=== PATIENT | female | born 1980 | race Caucasian/White ===

== ENCOUNTER 2017-02-05 15:23 | Emergency (ER) | payer BC ==
[~2017-02-05] VITALS: Ht 170.2 cm; Wt 127.0 kg
[~2017-02-05 15:23] MED LIST: BACTROBAN2% TP; CIPRO 500MG TA500 MG PO; CIPROFLOXACIN500 MG PO; CITALOPRAM20 MG PO; CLONAZEPAM 1MG T1 MG PO; DOXYCYCLINE MO100 MG PO; FLEXERIL10 MG PO; HYDROCHLOROTH12.5 M1 PO; IBUPROFEN600 MG PO; KEFLEX 500MG.500 MG PO; LORTAB 5/500 501 TAB PO; MEDROL 4MG. DOSE4 MG PO; MOBIC15 MG PO; MOTRIN600 MG PO; NAPROSYN 500MG500 MG PO; NAPROXEN SODIU500 MG PO; NAPROXEN375 MG PO; NITROFURANTOIN100 M4 PO; NOMEDS; NORCO 325 MG-51 TAB PO; OMNICEF 300 MG300 MG PO; PHENERGAN 25MG.25 M1 PO; PHENERGAN 25MG.25 MG PR; PHENERGAN W/CO473 ML PO; PROPRANOLOL60 MG PO; PROTONIX 40MG T40 MG PO; ROBAXIN500 MG PO; SEPTRA DS 800 M1 TAB PO; TYLENOL325 MG PO; ULTRAM 50 MG TA50 MG PO; VERMOX100 MG PO; VICODIN 5/500 T1 TAB PO; VOLTAREN75 MG PO; ZOFRAN4 MG PO
--- OUTSIDE RECORDS SUMMARY | 2017-02-05 16:00 | External Medical Summary Rpt ---
Author Author , Organization [employer] Address Unknown Phone Unavailable Purpose Continuity of Care Document - 08-30-2016 through 2016 Problems Code Diagnosis DOS Provider Status K21.9 GASTRO-ESOP HAGEAL REFLUX DISEASE WITHOUT ESOPHAGITIS Results Labs Lab Lab Date Result Refere Interp Status Commen Order Detail nces retati t Range on CHLAMYDIA AND GONORRHEA TESTING (10-14-2016 10:15) Chlamyd POSITIV complet ia 017 E ed trachom 10:15 atis rRNA [Presen ce] in Unspeci fied specime n by Probe & target amplifi cation method Neisser NEGATIV complet ia 017 E ed gonorrh 10:15 oeae rRNA [Presen ce] in Unspeci fied specime n by Probe & target amplifi cation method CHLAMYDIA AND GONORRHEA TESTING (10-14-2016 10:15) COLLECT AH/GENP complet OR 017 ROBE ed 10:15 ETHNICI WHITE, complet TY 017 NON-HIS ed 10:15 PANIC KIT complet EXPIRAT 017 017 ed ION 10:15 DATE SYMPTOM YES complet S 017 ed 10:15 REASON VOLUNTE complet FOR 017 ER/MEDI ed REQUEST 10:15 BELINDA PROBLEM SPECIME URINE complet N 017 ed SOURCE 10:15 PREGNAN NO complet T 017 ed 10:15 CHART N./A complet NUMBER 017 ed 10:15 Chlamyd Pending complet ia 017 ed trachom 10:15 atis rRNA [Presen ce] in Unspeci fied specime n by Probe & target amplifi cation method Neisser Pending complet ia 017 ed gonorrh 10:15 oeae rRNA [Presen ce] in Unspeci fied specime n by Probe & target amplifi cation method Treponema pallidum IgG Ab [Presence] in Serum by Immunoassay (08-30-2016 10:00) Trepone NON-RADHA complet ma 016 CTIVE ed pallidu 10:00 m IgG Ab [Presen ce] in Serum by Immunoa ssay CHLAMYDIA AND GONORRHEA TESTING (08-30-2016 10:00) Chlamyd POSITIV complet ia 016 E ed trachom 10:00 atis rRNA [Presen ce] in Unspeci fied specime n by Probe & target amplifi cation method Neisser NEGATIV complet ia 016 E ed gonorrh 10:00 oeae rRNA [Presen ce] in Unspeci fied specime n by Probe & target amplifi cation method Treponema pallidum IgG Ab [Presence] in Serum by Immunoassay (08-30-2016 10:00) COLLECT AH/RTT complet OR 016 ed 10:00 ETHNICI WHITE/N complet TY 016 ON-HISP ed 10:00 ANIC PURPOSE DIAGNOS complet OF 016 TIC ed EXAM 10:00 SPECIME BLOOD complet N 016 ed SOURCE 10:00 CHART N/A complet NUMBER 016 ed 10:00 Trepone Pending complet ma 016 ed pallidu 10:00 m IgG Ab [Presen ce] in Serum by Immunoa ssay CHLAMYDIA AND GONORRHEA TESTING (08-30-2016 10:00) COLLECT AH/GENP complet OR 016 ROBE ed 10:00 ETHNICI WHITE, complet TY 016 NON-HIS ed 10:00 PANIC KIT complet EXPIRAT 016 016 ed ION 10:00 DATE SYMPTOM NO complet S 016 ed 10:00 REASON VOLUNTE complet FOR 016 ER/MEDI ed REQUEST 10:00 BELINDA PROBLEM SPECIME URINE complet N 016 ed SOURCE 10:00 PREGNAN NO complet T 016 ed 10:00 CHART N/A complet NUMBER 016 ed 10:00 Chlamyd Pending complet ia 016 ed trachom 10:00 atis rRNA [Presen ce] in Unspeci fied specime n by Probe & target amplifi cation method Neisser Pending complet ia 016 ed gonorrh 10:00 oeae rRNA [Presen ce] in Unspeci fied specime n by Probe & target amplifi cation method
--- OUTSIDE RECORDS SUMMARY | 2017-02-05 16:00 | External Medical Summary Rpt ---
Author Author [employer] Organization [employer] Address Unknown Phone Unavailable Purpose Continuity of Care Document - through 2016
--- NOTE | 2017-02-05 16:01 | Emergency Room Report ---
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 N Clinical Suspician of Infection? N Mental Status: 1 - Regular (Normal Baseline) Sepsis Risk:Possible Sepsis Risk Have you (or family members/close friends) recently traveled outside the [place]? N If Yes, where/when: Have you had exposure to infectious disease within the past month? TB? Other? Specify: Comment The patient was using a slip and slide and injured her RIGHT ankle, hearing a loud pop. She now has severe pain in the distal one fourth of her lower leg and in her ankle. She is not able to bear weight on the RIGHT lower extremity. She has a prior history of cerebral palsy and LEFT ankle surgery and walks with a severe limp normally, very limited use of her LEFT lower extremity. She denies any other injury. No numbness. ALLERGIES Coded Allergies: No Known Allergies (05/12/16) History Medical History General CAD? No Angina: No ND: No Hypertension? Yes Hyperlipidemia? No CHF? No DVT? No PE? No COPD? No Asthma? No Anemia? No GERD? Yes Gastric ulcers? No GI Bleed? No Hernia? No Thyroid Problems? No Hypothyroidism? No CVA? No Seizures? Yes Diabetes? No Renal Insuffiency? No End Stage Renal Disease? No UTI? No Stones? No BPH? No GB Disease: Yes Nephritic Syndrome? No Asplenia? No Hepatitis? No Sickle Cell Disease? No Arthritis? No Migraines? No Cataracts? No Glaucoma? No MRSA? Yes HIV? No TB? No Anxiety? No Depression? No Cancer? No Immunization Hx DT/Tetanus > 10 YRS Flu REFUSES Pneumonia REFUSES Surgical Hx Previous Surgery?Y WISDOM TEETH EXTRACTION , 2002 SURGERY FOR CEREBRAL PALS C SECTION. 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 Family History Family Hx Diabetes Yes CAD No Hypertension Yes Hyperlipidemia Yes Cancer Yes TB No Social History Smoking Hx Smoker: Former Smoker Tobacco: Yes Type Cigarettes Packs/day < 1 Pack Alcohol Alcohol: No Review of Systems All Other Systems Reviewed and Negative Musculoskeletal see HPI, joint pain Psychiatric/Neurological denies numbness, denies weakness Physical Exam Vital Signs Vital Signs Date Time Temp Pulse Resp B/P Pulse O2 O2 Flow FiO2 Ox Delivery Rate 02/05 1627 108 26 240/141 97 02/05 1556 26 02/05 1527 98.7 106 22 220/100 97 General Appearance moderate distress, high BMI Respiratory Status No: respiratory distress. Cardiovascular regular rate/rhythm, normal peripheral pulses Extremities moderate RIGHT ankle edema. No visible deformity. Skin intact., tenderness diffusely RIGHT ankle and distal one fourth of the lower leg. No tenderness of the knee or proximal fibula. No tenderness of distal foot., normal pulses, capillary refill, sensation, warmth, movement of toes. Neurologic alert, no motor/sensory deficits Medical Decision Making LABS/Meds/Orders Pt receiving controlled substance in ED? Yes Pedrito was queried for this patient? No Reason not queried - emergent pt cond=no time Results/Orders Current Medication Orders Sig/Debra Start time Last Medication Dose Route Stop Time Status Admin Hydromorphone HCl 2 MG ONCE ONE 02/05 1615 DC 02/05 IM 02/05 1616 1556 Ondansetron HCl 4 MG ONCE ONE 02/05 1615 DC 02/05 IM 02/05 1616 1556 Ondansetron HCl 0 .STK-MED ONE 02/05 1604 DC .ROUTE Hydromorphone HCl 0 .STK-MED ONE 02/05 1603 DC .ROUTE XRAY/CT/US XRAY/CT/US XRAY ankle Comment X-ray interpreted by Thang Waldrop M.D.: Trimalleolar fracture. Mild subluxation laterally. Progress - 3:45 PM: Case discussed with Dr. Miranda who prefers a posterior and stirrup splint, wheelchair, and follow up in the office tomorrow afternoon. 4:05 PM: Dr. Miranda present in the emergency department. Procedures Orthopedic/Inj/Splint Progress Splint Application Performed by: THANG WALDROP Consent: Verbal consent obtained. Risks and benefits: risks, benefits and alternatives were discussed Consent given by: patient Patient identity confirmed: verbally with patient Splinting material: Orthoglass + JACKY wrap Type of splint: Short leg posterior and stirrup Location: RIGHT ankle Patient tolerance: Patient tolerated the procedure well with no immediate complications Neurovascular status intact with good sensation, capillary refill and movement before and after splint applied. Departure Departure Disposition DC Home or Self Care(routine) Clinical Impression Primary Impression: Trimalleolar fracture of ankle, closed Qualifiers: Encounter type: initial encounter Laterality: right Qualified Code: S82.851A - Displaced trimalleolar fracture of right lower leg, initial encounter for closed fracture Condition STABLE Referrals Viviane OLIVER,Mukul (Family) Patient Instructions DI for Ankle Fracture, How to Take Care of Your Splint Additional Instructions Ice and elevate her RIGHT ankle. Follow-up with Dr. Miranda in the office as instructed. Do not bear weight on your RIGHT leg. Additional instructions for FRACTURED (BROKEN) BONE: See Dr. Perdomo as soon as possible for further evaluation. Treat your splint like you would a cast: Do not get it wet (cover with a plastic bag while bathing or showering). If the splint feels too tight, you may loosen the jacky wrap covering it, but do not remove the splint. Return to an emergency department immediately if you have uncontrollable pain, loss of feeling or inability to move your injured extremity. Prescriptions Current Visit Scripts OXYCODONE HCL/ACETAMINOPHEN (Percocet 5-325 MG Tablet) 1 TAB PO Q6HP PRN pain #20 TAB ED Critical Care Critical Care No at [id number]
--- OUTSIDE RECORDS SUMMARY | 2017-02-05 16:01 | External Medical Summary Rpt ---
Author Author MAYKEL Garcia, [employer] Organization [employer] Address Unknown Phone Unavailable Results CHLAMYDIA AND GONORRHEA TESTING Observa Value Referen Units Interpr Notes Date tion ce etation Range COLLECT AH/GENP No No No No Oct 14 OR ROBE informa informa informa informa 2017 tion in tion in tion in tion in 10:15 source source source source AM data data data data ETHNICI WHITE, No No No No Oct 14 TY NON-HIS informa informa informa informa 2017 PANIC tion in tion in tion in tion in 10:15 source source source source AM data data data data KIT 05-31-2 No No No No Oct 14 EXPIRAT 017 informa informa informa informa 2017 ION tion in tion in tion in tion in 10:15 DATE source source source source AM data data data data SYMPTOM YES No No No No Oct 14 S informa informa informa informa 2017 tion in tion in tion in tion in 10:15 source source source source AM data data data data REASON VOLUNTE No No No No Oct 14 FOR ER/MEDI informa informa informa informa 2017 REQUEST BELINDA tion in tion in tion in tion in 10:15 PROBLEM source source source source AM data data data data SPECIME URINE No No No No Oct 14 N informa informa informa informa 2017 SOURCE tion in tion in tion in tion in 10:15 source source source source AM data data data data PREGNAN NO No No No No Oct 14 T informa informa informa informa 2017 tion in tion in tion in tion in 10:15 source source source source AM data data data data CHART N./A No No No No Oct 14 NUMBER informa informa informa informa 2017 tion in tion in tion in tion in 10:15 source source source source AM data data data data Chlamyd POSITIV No No No NEGATIV Oct 14 ia E informa informa informa E 2017 trachom tion in tion in tion in RESULT= 10:15 atis source source source WITHIN AM rRNA data data data NORMAL [Presen ce] in LIMITSP Unspeci OSITIVE fied specime RESULT= n by Probe & ABNORMA target LEQUIVO BELINDA amplifi RESULT= cation method INDETER MINATEU NSATISF ACTORY RESULT= INVALID Neisser NEGATIV No No No NEGATIV Oct 14 ia E informa informa informa E 2017 gonorrh tion in tion in tion in RESULT= 10:15 oeae source source source WITHIN AM rRNA data data data NORMAL [Presen ce] in LIMITSP Unspeci OSITIVE fied specime RESULT= n by Probe & ABNORMA target LEQUIVO BELINDA amplifi RESULT= cation method INDETER MINATEU NSATISF ACTORY RESULT= INVALID THE APTIMA COMBO 2 ASSAY IS NOT INTENDE D FOR THE EVALUAT ION OF SUSPECT EDSEXUA L ABUSE OR FOR OTHER MEDICO- LEGAL INDICAT IONS. FOR THOSE PATIENT S FORWHOM A FALSE POSITIV E RESULT MAY HAVE ADVERSE PSYCHO- SOCIAL IMPACT, [facility] NG.\.br \This report contain s patient informa tion that must be protect ed in accorda nce with the Health Insuran ce Portabi lity and Account ability Act. CHLAMYDIA AND GONORRHEA TESTING Observa Value Referen Units Interpr Notes Date tion ce etation Range COLLECT AH/GENP No No No No Oct 14 OR ROBE informa informa informa informa 2017 tion in tion in tion in tion in 10:15 source source source source AM data data data data ETHNICI WHITE, No No No No Oct 14 TY NON-HIS informa informa informa informa 2017 PANIC tion in tion in tion in tion in 10:15 source source source source AM data data data data KIT 05-31-2 No No No No Oct 14 EXPIRAT 017 informa informa informa informa 2017 ION tion in tion in tion in tion in 10:15 DATE source source source source AM data data data data SYMPTOM YES No No No No Oct 14 S informa informa informa informa 2017 tion in tion in tion in tion in 10:15 source source source source AM data data data data REASON VOLUNTE No No No No Oct 14 FOR ER/MEDI informa informa informa informa 2017 REQUEST BELINDA tion in tion in tion in tion in 10:15 PROBLEM source source source source AM data data data data SPECIME URINE No No No No Oct 14 N informa informa informa informa 2017 SOURCE tion in tion in tion in tion in 10:15 source source source source AM data data data data PREGNAN NO No No No No Oct 14 T informa informa informa informa 2017 tion in tion in tion in tion in 10:15 source source source source AM data data data data CHART N./A No No No No Oct 14 NUMBER informa informa informa informa 2017 tion in tion in tion in tion in 10:15 source source source source AM data data data data Chlamyd Pending No No No No Oct 14 ia informa informa informa informa 2017 trachom tion in tion in tion in tion in 10:15 atis source source source source AM rRNA data data data data [Presen ce] in Unspeci fied specime n by Probe & target amplifi cation method Neisser Pending No No No \.br\Oct 14 ia informa informa informa is 2017 gonorrh tion in tion in tion in report 10:15 oeae source source source contain AM rRNA data data data s [Presen patient ce] in Unspeci informa fied tion specime that n by must be Probe & target protect ed in amplifi accorda cation nce method with the Health Insuran ce Portabi lity and Account ability Act. Treponema pallidum IgG Ab [Presence] in Serum by Immunoassay Observa Value Referen Units Interpr Notes Date tion ce etation Range COLLECT AH/RTT No No No No Aug 30 OR informa informa informa informa 2016 tion in tion in tion in tion in 10:00 source source source source AM data data data data ETHNICI WHITE/N No No No No Aug 30 TY ON-HISP informa informa informa informa 2016 ANIC tion in tion in tion in tion in 10:00 source source source source AM data data data data PURPOSE DIAGNOS No No No No Aug 30 OF TIC informa informa informa informa 2016 EXAM tion in tion in tion in tion in 10:00 source source source source AM data data data data SPECIME BLOOD No No No No Aug 30 N informa informa informa informa 2016 SOURCE tion in tion in tion in tion in 10:00 source source source source AM data data data data CHART N/A No No No No Aug 30 NUMBER informa informa informa informa 2016 tion in tion in tion in tion in 10:00 source source source source AM data data data data Trepone NON-RADHA No No No METHOD Aug [address] informa informa informa OF 2016 pallidu tion in tion in tion in ANALYSI 10:00 m IgG source source source S: AM Ab data data data EIANORM [Presen AL ce] in RANGE: Serum NON-RADHA by CTIVE\. Immunoa br\This ssay report contain s patient informa tion that must be protect ed in accorda nce with the Health Insuran ce Portabi lity and Account ability Act. CHLAMYDIA AND GONORRHEA TESTING Observa Value Referen Units Interpr Notes Date tion ce etation Range COLLECT AH/GENP No No No No Aug 30 OR ROBE informa informa informa informa 2016 tion in tion in tion in tion in 10:00 source source source source AM data data data data ETHNICI WHITE, No No No No Aug 30 TY NON-HIS informa informa informa informa 2016 PANIC tion in tion in tion in tion in 10:00 source source source source AM data data data data KIT 12-31-2 No No No No Aug 30 EXPIRAT 016 informa informa informa informa 2016 ION tion in tion in tion in tion in 10:00 DATE source source source source AM data data data data SYMPTOM NO No No No No Aug 30 S informa informa informa informa 2016 tion in tion in tion in tion in 10:00 source source source source AM data data data data REASON VOLUNTE No No No No Aug 30 FOR ER/MEDI informa informa informa informa 2016 REQUEST BELINDA tion in tion in tion in tion in 10:00 PROBLEM source source source source AM data data data data SPECIME URINE No No No No Aug 30 N informa informa informa informa 2016 SOURCE tion in tion in tion in tion in 10:00 source source source source AM data data data data PREGNAN NO No No No No Aug 30 T informa informa informa informa 2016 tion in tion in tion in tion in 10:00 source source source source AM data data data data CHART N/A No No No No Aug 30 NUMBER informa informa informa informa 2016 tion in tion in tion in tion in 10:00 source source source source AM data data data data Chlamyd POSITIV No No No NEGATIV Aug 30 ia E informa informa informa E 2016 trachom tion in tion in tion in RESULT= 10:00 atis source source source WITHIN AM rRNA data data data NORMAL [Presen ce] in LIMITSP Unspeci OSITIVE fied specime RESULT= n by Probe & ABNORMA target LEQUIVO BELINDA amplifi RESULT= cation method INDETER MINATEU NSATISF ACTORY RESULT= INVALID Neisser NEGATIV No No No NEGATIV Aug 30 ia E informa informa informa E 2016 gonorrh tion in tion in tion in RESULT= 10:00 oeae source source source WITHIN AM rRNA data data data NORMAL [Presen ce] in LIMITSP Unspeci OSITIVE fied specime RESULT= n by Probe & ABNORMA target LEQUIVO BELINDA amplifi RESULT= cation method INDETER MINATEU NSATISF ACTORY RESULT= INVALID THE APTIMA COMBO 2 ASSAY IS NOT INTENDE D FOR THE EVALUAT ION OF SUSPECT EDSEXUA L ABUSE OR FOR OTHER MEDICO- LEGAL INDICAT IONS. FOR THOSE PATIENT S FORWHOM A FALSE POSITIV E RESULT MAY HAVE ADVERSE PSYCHO- SOCIAL IMPACT, [facility] NG.\.br \This report contain s patient informa tion that must be protect ed in accorda nce with the Health Insuran ce Portabi lity and Account ability Act. Treponema pallidum IgG Ab [Presence] in Serum by Immunoassay Observa Value Referen Units Interpr Notes Date tion ce etation Range COLLECT AH/RTT No No No No Aug 30 OR informa informa informa informa 2016 tion in tion in tion in tion in 10:00 source source source source AM data data data data ETHNICI WHITE/N No No No No Aug 30 TY ON-HISP informa informa informa informa 2016 ANIC tion in tion in tion in tion in 10:00 source source source source AM data data data data PURPOSE DIAGNOS No No No No Aug 30 OF TIC informa informa informa informa 2016 EXAM tion in tion in tion in tion in 10:00 source source source source AM data data data data SPECIME BLOOD No No No No Aug 30 N informa informa informa informa 2016 SOURCE tion in tion in tion in tion in 10:00 source source source source AM data data data data CHART N/A No No No No Aug 30 NUMBER informa informa informa informa 2016 tion in tion in tion in tion in 10:00 source source source source AM data data data data Trepone Pending No No No \.br\Aug 30 ma informa informa informa is 2016 pallidu tion in tion in tion in report 10:00 m IgG source source source contain AM Ab data data data s [Presen patient ce] in Serum informa by zeeshan [employer] that ssay must be protect ed in accorda nce with the Health Insuran ce Portabi lity and Account ability Act. CHLAMYDIA AND GONORRHEA TESTING Observa Value Referen Units Interpr Notes Date tion ce etation Range COLLECT AH/GENP No No No No Aug 30 OR ROBE informa informa informa informa 2016 tion in tion in tion in tion in 10:00 source source source source AM data data data data ETHNICI WHITE, No No No No Aug 30 TY NON-HIS informa informa informa informa 2016 PANIC tion in tion in tion in tion in 10:00 source source source source AM data data data data KIT 12-31-2 No No No No Aug 30 EXPIRAT 016 informa informa informa informa 2016 ION tion in tion in tion in tion in 10:00 DATE source source source source AM data data data data SYMPTOM NO No No No No Aug 30 S informa informa informa informa 2016 tion in tion in tion in tion in 10:00 source source source source AM data data data data REASON VOLUNTE No No No No Aug 30 FOR ER/MEDI informa informa informa informa 2016 REQUEST BELINDA tion in tion in tion in tion in 10:00 PROBLEM source source source source AM data data data data SPECIME URINE No No No No Aug 30 N informa informa informa informa 2016 SOURCE tion in tion in tion in tion in 10:00 source source source source AM data data data data PREGNAN NO No No No No Aug 30 T informa informa informa informa 2016 tion in tion in tion in tion in 10:00 source source source source AM data data data data CHART N/A No No No No Aug 30 NUMBER informa informa informa informa 2016 tion in tion in tion in tion in 10:00 source source source source AM data data data data Chlamyd Pending No No No No Aug 30 ia informa informa informa informa 2016 trachom tion in tion in tion in tion in 10:00 atis source source source source AM rRNA data data data data [Presen ce] in Unspeci fied specime n by Probe & target amplifi cation method Neisser Pending No No No \.br\Aug 30 ia informa informa informa is 2016 gonorrh tion in tion in tion in report 10:00 oeae source source source contain AM rRNA data data data s [Presen patient ce] in Unspeci informa fied tion specime that n by must be Probe & target protect ed in amplifi accorda cation nce method with the Health Insuran ce Portabi lity and Account ability Act.
--- OUTSIDE RECORDS SUMMARY | 2017-02-05 16:01 | External Medical Summary Rpt ---
Demographics Preferred Language Hungarian Marital Status Unknown Temple Affiliation Unknown Race Unknown Ethnic Group Unknown Author Author , Organization [employer] Address Unknown Phone Unavailable Purpose Continuity of Care Document - through 2016 Immunization No patient found.
--- OUTSIDE RECORDS SUMMARY | 2017-02-05 16:01 | External Medical Summary Rpt ---
Demographics Preferred Language Greenlandic Marital Status Unknown Uatsdin Affiliation Unknown Race Unknown Ethnic Group Unknown Author Author , Organization [employer] Address Unknown Phone Unavailable Purpose Continuity of Care Document - through 2016 Immunization No patient found.
--- OUTSIDE RECORDS SUMMARY | 2017-02-05 16:01 | External Medical Summary Rpt ---
Author Author MAYKEL Garcia, [employer]EL [employer] Organization [employer] Address Unknown Phone Unavailable [...] MAY HAVE ADVERSE PSYCHO- SOCIAL IMPACT, [facility].\.br \This report contain s [...] MAY HAVE ADVERSE PSYCHO- SOCIAL IMPACT, [facility] [place] [facility] NG.\.br \This report contain s [...]
--- NOTE | 2017-02-05 16:07 | RADIOLOGY REPORT PS360 ---
LOWER LEG-RT COMPARISON: None HISTORY: Right leg pain after a fall TECHNIQUE: AP lateral and oblique views FINDINGS: There is mild degenerative changes of knee with joint space narrowing medially. The proximal tibia and fibula appear intact. There is an oblique fracture distal fibula essentially nondisplaced and there is a transverse fracture of the medial malleolus with mild disruption the ankle mortise. IMPRESSION: Fractures of the distal fibula and medial malleolus as noted.
--- NOTE | 2017-02-05 16:08 | RADIOLOGY REPORT PS360 ---
ANKLE-RT-3 VIEWS COMPARISON: None HISTORY: Right ankle pain after a fall TECHNIQUE: AP lateral and oblique views FINDINGS: There is a transverse fracture through the medial malleolus with widening of the ankle mortise medially and anteriorly. There is a spiral oblique fracture of the distal fibula essentially nondisplaced. There is moderate diffuse soft tissue swelling both medially and laterally area IMPRESSION: Distal fibular and medial malleolar fractures with disruption of the ankle mortise as noted
[2017-02-05] MEDS ORDERED: PERCOCET1 TAB PO (16:50)
[2017-02-05 17:08] VITALS: BP 196/100
== END 2017-02-05 17:09 | disposition home or self-care (01) ==
LOC: ER 15:23
PROC: 2W3QX1Z Immobilization of Right Lower Leg using Splint (ICD-10-PCS; principal; 2017-02-05)
DX: S82.851A Displaced trimalleolar fracture of right lower leg, initial encounter for closed fracture (principal); W01.0XXA Fall on same level from slipping, tripping and stumbling without subsequent striking against object, initial encounter; Y92.007 Garden or yard of unspecified non-institutional (private) residence as the place of occurrence of the external cause
CPT/HCPCS: J2405

== ENCOUNTER → 2017-02-07 | Outpatient (CLI) | payer BC ==
[~2017-02-07] MED LIST changes: +PERCOCET1 TAB PO
--- NOTE | 2017-02-07 14:51 | RADIOLOGY REPORT PS360 ---
CT EXT.LOWER-RT-W/O CONTRAST INDICATION: Trimalleolar fracture Pain following injury, swelling, fracture, TRIMALLEOLAR FX ORDERING PHYSICIAN: Jack Perdomo MD PATIENT AGE: 36 years COMPARISON: Radiograph of 02/06/2017 TECHNIQUE: Axial images are obtained without contrast. Sagittal and coronal reformatted images are reviewed as well. Three-D reformatted images also generated and reviewed FINDINGS: Mildly displaced traumatic fracture is noted. Transverse fracture is present at the base of the medial malleolus. The anterior aspect of the distal fracture fragment is distracted x 8 mm with mild posterior angulation of the distal fracture fragment and minimal medial displacement of the distal fracture fragment x 4 mm. There is an oblique comminuted fracture of the distal fibula with mild dorsal displacement of the distal fracture fragment x 4 mm. Longitudinal fracture involves the posterior distal tibia without significant displacement or angulation. The ankle mortise is widened with mild lateral displacement of the talus by approximately 8 mm. There is mild posterior displacement of the talus by approximately 6 mm There is generalized soft tissue swelling both medially and laterally about the ankle and foot. IMPRESSION: Mildly displaced trimalleolar fracture as described above with wide neck mortise and mild lateral and posterior displacement of the talus
== END ==
LOC: RAD 12:05
DX: S82.851A Displaced trimalleolar fracture of right lower leg, initial encounter for closed fracture (principal)